=== PATIENT | male | born 1990 | race Caucasian/White ===

== ENCOUNTER 2017-11-17 20:07 | Emergency (ER) | payer MEDICARE, OTHER ==
[~2017-11-17] VITALS: Ht 190.5 cm; Wt 99.8 kg
[~2017-11-17 20:07] MED LIST: DOXYCYCLINE HY100 MG PO; IBUPROFEN600 MG PO; NORCO 5-325 TA1 EACH PO; ZOFRAN ODT8 MG PO
[2017-11-17] MEDS ORDERED: NAPROXEN500 MG PO (21:44)
[2017-11-17] MEDS ORDERED: CYCLOBENZAPRINE10 MG PO (21:44)
== END 2017-11-17 21:56 | disposition home or self-care (01) ==
LOC: ED 20:07
DX: M54.5 Low back pain (principal); F90.9 Attention-deficit hyperactivity disorder, unspecified type; F17.200 Nicotine dependence, unspecified, uncomplicated; Z88.8 Allergy status to other drugs, medicaments and biological substances
CPT/HCPCS: 81001; 99284

== ENCOUNTER 2018-07-04 14:16 | Emergency (ER) | payer MEDICARE, OTHER ==
[~2018-07-04] VITALS: Ht 190.5 cm; Wt 117.9 kg
[~2018-07-04 14:16] MED LIST changes: +CYCLOBENZAPRINE10 MG PO; +NAPROXEN500 MG PO; +TRAMADOL HCL50 MG PO
== END 2018-07-04 15:00 | disposition home or self-care (01) ==
LOC: ED 14:16
DX: M25.571 Pain in right ankle and joints of right foot (principal)

== ENCOUNTER 2024-03-17 02:24 | Emergency (ER) | payer MEDICARE, OTHER ==
[~2024-03-17] VITALS: Ht 193 cm; Wt 140.0 kg
[~2024-03-17 02:24] MED LIST changes: +AMOXICILLIN500 MG PO
[2024-03-17] MEDS ORDERED: OMEPRAZOLE40 MG PO (02:42)
[2024-03-17] MEDS ORDERED: CEPHALEXIN500 M1 PO (02:59)
[2024-03-17] MEDS ORDERED: CEPHALEXIN MONOHYDRATE 500 MG HOME.PACK PO ONE (03:00)
[2024-03-17 03:08] VITALS: BP 129/94
== END 2024-03-17 03:08 | disposition home or self-care (01) ==
LOC: ED 02:24
DX: L03.115 Cellulitis of right lower limb (principal); S80.811A Abrasion, right lower leg, initial encounter; F84.0 Autistic disorder; Z87.891 Personal history of nicotine dependence; Z88.8 Allergy status to other drugs, medicaments and biological substances; Z79.899 Other long term (current) drug therapy; W55.03XA Scratched by cat, initial encounter
CPT/HCPCS: 99282; A9270